=== PATIENT | female | born 1990 | race African-American/Black ===

== ENCOUNTER 2017-03-07 21:29 | Inpatient (IN) | payer OTHER ==
[2017-03-07] MEDS ORDERED: ALUMINUM/MAGNESIUM/SIMETH 30 ML CUP PO PRN (23:30)
[2017-03-07] MEDS ORDERED: diphenhydrAMINE HCL 50 MG CAP - HS PRN PO (23:30)
[2017-03-07] MEDS ORDERED: ACETAMINOPHEN 325 MG TAB PO PRN (23:30)
[2017-03-07] MEDS ORDERED: LORazepam 1 MG TAB PO PRN (23:30)
[2017-03-07] MEDS ORDERED: MAGNESIUM HYDROXIDE SUSP 30 ML CUP PO PRN (23:30)
[2017-03-08 00:11] VITALS: BP 167/103; PULSE 94; RESP 18; TEMP 97.9; O2SAT 98
[2017-03-08] MEDS: diphenhydrAMINE HCL 50 MG/ML VIAL - HS PRN IM ×2 (00:20→01:00)
[2017-03-08] MEDS: LORazepam 2 MG/ML VIAL IM PRN ×2 (00:20→01:20)
[2017-03-08 01:25] VITALS: BP 139/93; PULSE 94
[2017-03-08] MEDS ORDERED: hydrOXYzine HCL 50 MG TAB PO PRN (01:45)
[2017-03-08] MEDS ORDERED: HYDROmorphone HCL 4 MG TAB PO PRN (01:45)
[2017-03-08] MEDS: NICOTINE 21 MG/24 HR PATCH T-DERMAL SCH ×3 (09:00→13:16)
[2017-03-08] MEDS ORDERED: LEXA10TA PO (10:05)
[2017-03-08] MEDS ORDERED: HYDR4TAB PO (10:05)
[2017-03-08] MEDS ORDERED: METO25TA3 PO (10:05)
[2017-03-08] MEDS ORDERED: HYDR500C PO (10:05)
[2017-03-08] MEDS ORDERED: DEXA4TAB PO (10:05)
[2017-03-08] MEDS ORDERED: LEVE10003 PO (10:05)
[2017-03-08] MEDS ORDERED: LORA2TAB7 PO (10:05)
[2017-03-08] MEDS ORDERED: NORT25CA PO (10:05)
[2017-03-08] MEDS ORDERED: ZOLP10TA3 PO (10:10)
[2017-03-08] MEDS ORDERED: HALO5INJ4 IM (10:10)
[2017-03-08] MEDS ORDERED: MIRA3350 PO (10:10)
[2017-03-08] MEDS ORDERED: FOLI1TAB6 PO (10:10)
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
[2017-03-08] MEDS ORDERED: REMOVE OLD NICOTINE PATCH T-DERMAL SCH (21:00)
[2017-03-08] MEDS ORDERED: HYDROXYUREA 500 MG CAP PO SCH (21:00)
[2017-03-08] MEDS ORDERED: METOPROLOL TARTRATE 25 MG TAB PO SCH (21:00)
[2017-03-08] MEDS ORDERED: levETIRAcetam 500 MG TAB PO SCH (21:00)
[2017-03-09] MEDS ORDERED: POLYETHYLENE GLYCOL 17 GM PKG PO SCH (09:00)
[2017-03-09] MEDS ORDERED: FOLIC ACID 1 MG TAB PO SCH (09:00)
== END 2017-03-08 15:51 | disposition left against medical advice (07) | DRG 882 ==
LOC: H270 22:40
PROVIDERS: ADMIT Psychiatry & Neurology Psychiatry; ATTEND Psychiatry & Neurology Psychiatry
DX: F43.20 Adjustment disorder, unspecified (principal); D57.1 Sickle-cell disease without crisis; G40.909 Epilepsy, unspecified, not intractable, without status epilepticus; Z85.841 Personal history of malignant neoplasm of brain; Z92.21 Personal history of antineoplastic chemotherapy
CPT/HCPCS: J1200; J2060